=== PATIENT | female | born 1965 | race Caucasian/White ===

== ENCOUNTER 2024-04-21 10:20 | Emergency (ER) | payer MEDICAID ==
[2024-04-21] MEDS: Morphine 10 MG/ML Syringe IM ONE (12:04)
== END 2024-04-21 15:19 | disposition home or self-care (01) ==
LOC: JP.ED 10:20
DX: S76.302A Unspecified injury of muscle, fascia and tendon of the posterior muscle group at thigh level, left thigh, initial encounter (principal); Z88.0 Allergy status to penicillin; Z88.2 Allergy status to sulfonamides; Z79.899 Other long term (current) drug therapy; W01.0XXA Fall on same level from slipping, tripping and stumbling without subsequent striking against object, initial encounter; Y92.019 Unspecified place in single-family (private) house as the place of occurrence of the external cause
CPT/HCPCS: 73502; 96372; 99283; J2270